=== PATIENT | female | born 1995 | race Caucasian/White ===

== ENCOUNTER 2021-06-19 16:39 | Emergency (ER) | payer OTHER, MEDICAID ==
[~2021-06-19] VITALS: Ht 160 cm; Wt 49.9 kg
[2021-06-19 16:45] VITALS: BP 122/90
[2021-06-19] MEDS ORDERED: LITHATE5 MG PO (16:48)
[2021-06-19] MEDS ORDERED: PROZAC10 M1 PO (16:48)
--- NOTE | 2021-06-20 11:41 | EKG ---
[place] [address] ELECTROCARDIOGRAM REPORT Name: AAMIRJOAN L Room: [facility]#: [id number] Admission: 06/19/21 Attend Phys: Discharge: 06/19/21 Date of : [birth year] Date of Service: 06/19/21 1642 Report #: [id number] THIS REPORT FOR: //name// [facility] ED Test Date: 2021-06-19 Test Time: 16:42:35 Pat Name: JOAN RUTLEDGE Department: Room: Gender: F Rn Wound Care: [place] : 1995 Requested By: Katharina Hernandez Order Number: [id number] MD: Isael Quintana Measurements Intervals [place] Rate: 79 P: 76 NV: 149 QRS: 62 QRSD: 81 T: 36 QT: 368 QTc: 422 Interpretive Statements Sinus rhythm No previous ECG available for comparison Electronically Signed On 06-20-2021 11:41:47 [employer] by Isael Quintana [email or web address] <ELECTRONICALLY SIGNED> By: Isael Quintana MD, [facility] 06/20/21 1141 164 41 Isael Quintana MD, [facility] /EPI
== END 2021-06-19 19:19 | disposition left against medical advice (07) ==
LOC: M.ERS 16:39
DX: R07.89 Other chest pain (principal); Z53.21 Procedure and treatment not carried out due to patient leaving prior to being seen by health care provider